=== PATIENT | female | born 1990 | race Caucasian/White ===

== ENCOUNTER 2018-07-26 02:28 | Emergency (ER) | payer OTHER ==
--- NOTE | 2018-07-26 02:35 | ERPHSYRPT ---
- History of Present Illness Time Seen by Provider: 07/26/18 02:30 Historian: patient Exam Limitations: no limitations Physician History: 28 y/o white female presents with sudden onset of substernal central cp with soa while driving home from work. pts pain radiates outward bilaterally. she has been fighting a chest cold. hurts worse to take a deep breath. pt has nkda and takes oral contraceptive pills only. pt has a cough but no hemoptysis. she has never had anything like this before. she has no h/o or family h/o blood clots. she has not been long distant traveling. Timing/Duration: today Activities at Onset: other (driving home) Quality: sharpness, stabbing Location: substernal, central Chest Pain Radiation: no radiation Severity of Pain-Max: mild Severity of Pain-Current: mild Modifying Factors: Improves With: coughing Associated Symptoms: shortness of breath, cough, hurts to breathe, No nausea, No vomiting, No palpitations Prior Chest Pain/Cardiac Workup: no prior chest pain Nitro Today/Relief: no nitro taken today Aspirin Treatment Today: no aspirin today Allergies/Adverse Reactions: No Known Drug Allergies Allergy (Unverified 07/26/18 02:43) Home Medications: Norgestimate-Ethinyl Estradiol [Sprintec 28 Day Tablet] 1 tab PO DAILY PRN 07/26 [History] - Review of Systems Constitutional: No Symptoms Eyes: No Symptoms Ears, Nose, & Throat: No Symptoms Respiratory: Cough, Dyspnea, No Stridor, No Wheezing Cardiac: Chest Pain, No Palpitations, No Syncope Abdominal/Gastrointestinal: No Symptoms, No Abdominal Pain, No Nausea, No Vomiting, No Diarrhea Genitourinary Symptoms: No Symptoms, No Dysuria, No Frequency, No Hematuria Musculoskeletal: No Symptoms, No Back Pain Skin: No Symptoms Neurological: No Symptoms Psychological: No Symptoms Endocrine: No Symptoms Hematologic/Lymphatic: No Symptoms Immunological/Allergic: No Symptoms All Other Systems: Reviewed and Negative - Past Medical History Pertinent Past Medical History: Yes Neurological History: No Pertinent History ENT History: No Pertinent History Cardiac History: No Pertinent History Respiratory History: No Pertinent History Endocrine Medical History: No Pertinent History Musculoskeletal History: No Pertinent History GI Medical History: No Pertinent History History: No Pertinent History Psycho-Social History: No Pertinent History Female Reproductive Disorders: No Pertinent History - Past Surgical History Neuro Surgical History: No Pertinent History Cardiac: No Pertinent History Respiratory: No Pertinent History Gastrointestinal: No Pertinent History Genitourinary: No Pertinent History Musculoskeletal: No Pertinent History Female Surgical History: No Pertinent History - Nursing Vital Signs Nursing Vital Signs: Initial Vital Signs Temperature 98.6 F 07/26/18 02:34 Pulse Rate 84 07/26/18 02:34 Respiratory Rate 18 07/26/18 02:34 Blood Pressure 145/86 07/26/18 02:34 O2 Sat by Pulse Oximetry 100 07/26/18 02:34 Pain Scale Pain Intensity 6 - Physical Exam General Appearance: mild distress, alert, anxiety Eye Exam: PERRL/EOMI, eyes nml inspection Ears, Nose, Throat Exam: normal ENT inspection, moist mucous membranes Neck Exam: normal inspection, non-tender, supple, full range of motion Respiratory Exam: normal breath sounds, chest tenderness, lungs clear, airway intact, No respiratory distress, No accessory muscle use, No rhonchi, No wheezing, No stridor Cardiovascular Exam: regular rate/rhythm, normal heart sounds, normal peripheral pulses Gastrointestinal/Abdomen Exam: soft, normal bowel sounds, No tenderness, No guarding, No rebound Pelvic Exam: not done Rectal Exam: not done Extremity Exam: normal inspection, normal range of motion, pelvis stable Neurologic Exam: alert, oriented x 3, cooperative, septic technician II-XII nml as tested Skin Exam: normal color, warm, dry Lymphatic Exam: No adenopathy SpO2 Interpretation: normal Oxygen Delivery: Room Air - Course Nursing assessment & vital signs reviewed: Yes EKG Interpreted by Me: RATE (86), NORMAL AXIS, NORMAL INTERVALS, NORMAL QRS, Other (no comparison) Ordered Tests: Active Orders 24 hr Category Date Time Status Telecommunications Operator STAT Care 07/26/18 02:38 Active EKG-ER Only STAT Care 07/26/18 02:37 Active IV Insertion STAT Care 07/26/18 02:37 Active CHEST 1 VIEW (PORTABLE) Stat Exams 07/26/18 02:38 Taken CBC W DIFF Stat Lab 07/26/18 02:45 Completed CMP Stat Lab 07/26/18 02:45 Completed D-DIMER QUANTITATION Stat Lab 07/26/18 02:45 Completed HCG,QUALITATIVE URINE Stat Lab 07/26/18 02:37 Uncollected NT PRO BNP Stat Lab 07/26/18 02:45 Completed PROTIME WITH INR Stat Lab 07/26/18 02:45 Completed TROPONIN Q3H Lab 07/26/18 02:45 Completed TROPONIN Q3H Lab 07/26/18 05:45 Ordered TROPONIN Q3H Lab 07/26/18 08:45 Ordered TROPONIN Q3H Lab 07/26/18 11:45 Ordered TROPONIN Q3H Lab 07/26/18 14:45 Ordered Medication Summary Generic Name Dose Route Start Last Admin Trade Name Freq PRN Reason Stop Dose Admin Hydrocodone Bitart/Acetaminophen 15 ml 07/26/18 03:54 Hydrocodone-Acetamin 2.5-108/5 Ml Solution PO 07/26/18 03:55 STAT STA Ceftriaxone Sodium/Dextrose 1 g in 50 mls @ 100 mls/hr 07/26/18 03:54 Rocephin 1 Gm-D5w 50 Ml Bag IV 07/26/18 04:23 STAT STA Methylprednisolone Sodium Succinate 125 mg 07/26/18 03:55 Solu-Medrol 125 Mg IV 07/26/18 03:56 STAT ONE Discontinued Medications Generic Name Dose Route Start Last Admin Trade Name Freq PRN Reason Stop Dose Admin Hydrocodone Bitart/Acetaminophen Confirm 07/26/18 03:49 Hydrocodone-Acetamin 2.5-108/5 Ml Solution Administered 07/26/18 03:50 Dose 15 ml .ROUTE .STK-MED ONE Aspirin 324 mg 07/26/18 02:37 07/26/18 02:46 Baby Aspirin 81 Mg Chew PO 07/26/18 02:38 324 mg STAT ONE Administration Aspirin Confirm 07/26/18 02:46 Baby Aspirin 81 Mg Chew Administered 07/26/18 02:47 Dose 324 mg .ROUTE .STK-MED ONE Ceftriaxone Sodium/Dextrose Confirm 07/26/18 03:49 Rocephin 1 Gm-D5w 50 Ml Bag Administered 07/26/18 03:50 Dose 1 g in 50 mls @ ud IV .STK-MED ONE Methylprednisolone Sodium Succinate Confirm 07/26/18 03:49 Solu-Medrol 125 Mg Administered 07/26/18 03:50 Dose 125 mg .ROUTE .STK-MED ONE Lab/Rad Data: Laboratory Result Diagrams 07/26/18 02:45 07/26/18 02:45 Laboratory Results 07/26/18 07/26/18 07/26/18 Range/Units 02:45 02:45 02:45 WBC (4.0-10.5) K/mm3 RBC (4.1-5.4) M/mm3 Hgb (12.0-16.0) gm/dl Hct (35-47) % MCV (78-100) fl MCH (26-32) pg MCHC (32-36) g/dl RDW (11.5-14.0) % Plt Count (150-450) K/mm3 MPV (6-9.5) fl Gran % (36.0-66.0) % Eos # (Auto) (0-0.5) Absolute Lymphs (auto) (1.0-4.6) Absolute Monos (auto) (0.0-1.3) Lymphocytes % (24.0-44.0) % Monocytes % (0.0-12.0) % Eosinophils % (0.00-5.0) % Basophils % (0.0-0.4) % Absolute Granulocytes (1.4-6.9) Basophils # (0-0.4) PT 12.8 H (9.95-12.35) SECONDS INR 1.10 (0.8-3.0) D-Dimer 446 (215-500) ng/mL Sodium 139 (137-145) mmol/L Potassium 3.5 (3.5-5.1) mmol/L Chloride 100 (98-107) mmol/L Carbon Dioxide 26 (22-30) mmol/L Anion Gap 16.8 H (5-15) MEQ/L BUN 13 (7-17) mg/dL Creatinine 0.60 (0.52-1.04) mg/dL Estimated GFR > 60.0 ML/MIN Glucose 96 (74-106) mg/dL Calcium 9.8 (8.4-10.2) mg/dL Total Bilirubin 0.80 (0.2-1.3) mg/dL AST 23 (14-36) U/L ALT 34 (0-35) U/L Alkaline Phosphatase 90 (38-126) U/L Troponin I < 0.012 (0.000-0.034) ng/mL NT-Pro-B Natriuret Pep 96.9 (0-450) pg/mL Serum Total Protein 8.3 H (6.3-8.2) g/dL Albumin 4.8 (3.5-5.0) g/dL 07/26/18 Range/Units 02:45 WBC 9.5 (4.0-10.5) K/mm3 RBC 4.67 (4.1-5.4) M/mm3 Hgb 14.1 (12.0-16.0) gm/dl Hct 41.8 (35-47) % MCV 89.5 (78-100) fl MCH 30.2 (26-32) pg MCHC 33.7 (32-36) g/dl RDW 13.4 (11.5-14.0) % Plt Count 308 (150-450) K/mm3 MPV 10.3 H (6-9.5) fl Gran % 60.4 (36.0-66.0) % Eos # (Auto) 0.07 (0-0.5) Absolute Lymphs (auto) 2.63 (1.0-4.6) Absolute Monos (auto) 1.03 (0.0-1.3) Lymphocytes % 27.8 (24.0-44.0) % Monocytes % 10.9 (0.0-12.0) % Eosinophils % 0.7 (0.00-5.0) % Basophils % 0.2 (0.0-0.4) % Absolute Granulocytes 5.70 (1.4-6.9) Basophils # 0.02 (0-0.4) PT (9.95-12.35) SECONDS INR (0.8-3.0) D-Dimer (215-500) ng/mL Sodium (137-145) mmol/L Potassium (3.5-5.1) mmol/L Chloride (98-107) mmol/L Carbon Dioxide (22-30) mmol/L Anion Gap (5-15) MEQ/L BUN (7-17) mg/dL Creatinine (0.52-1.04) mg/dL Estimated GFR ML/MIN Glucose (74-106) mg/dL Calcium (8.4-10.2) mg/dL Total Bilirubin (0.2-1.3) mg/dL AST (14-36) U/L ALT (0-35) U/L Alkaline Phosphatase (38-126) U/L Troponin I (0.000-0.034) ng/mL NT-Pro-B Natriuret Pep (0-450) pg/mL Serum Total Protein (6.3-8.2) g/dL Albumin (3.5-5.0) g/dL - Progress Progress: improved, re-examined Air Movement: good Progress Note: 07/26/18 03:56 cxr-no acute process Blood Culture(s) Obtained: No Antibiotics given: Yes Counseled pt/family regarding: lab results, diagnosis, need for follow-up, rad results - Departure Time of Disposition: 03:56 Departure Disposition: Home Clinical Impression: Bronchitis, Pleurisy Condition: Stable Critical Care Time: No Additional Instructions: drink plenty of fluids. follow up with primary doctor for further management Prescriptions: Albuterol 8 gm Mdi Hfa [Ventolin Hfa MDI] 8 gm IH Q4H #1 hfa.aer.ad Azithromycin 250 mg [Zithromax 250 MG TABLET] 250 mg PO ZPACK #6 tablet Hydrocodone Bit/Acetaminophen [Hydrocodone-Acetaminophen Soln] 10 ml PO Q6H # 120 ml Prednisone 10 mg [Deltasone 10 mg] 10 mg PO TID #12 tablet
[2018-07-26] MEDS ORDERED: BABY ASPIRIN 81 MG CHEW ONE (02:46)
[2018-07-26] MEDS: BABY ASPIRIN 81 MG CHEW PO ONE (02:46)
[2018-07-26 03:01] LABS: BASOPHIL % 0.2 % (0.0-0.4); Basophil (Absolute #) 0.02 (0-0.4); Eosinophil % 0.7 % (0.00-5.0); Eosinophil (Absolute #) 0.07 (0-0.5); Granulocytes % 60.4 % (36.0-66.0); Hematocrit 41.8 % (35-47); Hemoglobin 14.1 gm/dl (12.0-16.0); Lymphocyte (Absolute #) 2.63 (1.0-4.6); Lymphocytes % 27.8 % (24.0-44.0); Mean Cell Volume 89.5 fl (78-100); Mean Corpuscular Hemoglobin 30.2 pg (26-32); Mean Corpuscular Hgb Concent. 33.7 g/dl (32-36); Mean Platelet Volume 10.3 fl (6-9.5); Monocyte (Absolute #) 1.03 (0.0-1.3); Monocytes % 10.9 % (0.0-12.0); Platelet Count 308 K/mm3 (150-450); Red Blood Count 4.67 M/mm3 (4.1-5.4); Red Cell Distribution Width 13.4 % (11.5-14.0); White Blood Count 9.5 K/mm3 (4.0-10.5)
[2018-07-26 03:18] LABS: ALBUMIN 4.8 g/dL (3.5-5.0); ALKALINE PHOSPHATASE 90 U/L (38-126); ANION GAP 16.8 MEQ/L (5-15); BLOOD UREA NITROGEN 13 mg/dL (7-17); CHLORIDE 100 mmol/L (98-107); Calcium 9.8 mg/dL (8.4-10.2); Carbon Dioxide 26 mmol/L (22-30); Glucose 96 mg/dL (74-106); NT PRO BNP 96.9 pg/mL (0-450); Potassium 3.5 mmol/L (3.5-5.1); SGOT/AST 23 U/L (14-36); SGPT/ALT 34 U/L (0-35); SODIUM 139 mmol/L (137-145); Total Protein 8.3 g/dL (6.3-8.2)
[2018-07-26 03:29] LABS: INR 1.1 (0.8-3.0); PROTIME 12.8 SECONDS (9.95-12.35)
[2018-07-26] MEDS ORDERED: ROCEPHIN 1 Gm-D5w 50 ml Bag** 1 G/50 ML IVPB IV ONE (03:49)
[2018-07-26] MEDS ORDERED: solu-MEDROL 125 MG ONE (03:49)
[2018-07-26] MEDS ORDERED: HYDROCODONE-ACETAMIN 2.5-108/5 ML SOLUTION ONE (03:49)
[2018-07-26] MEDS: ROCEPHIN 1 Gm-D5w 50 ml Bag** 1 G/50 ML IVPB IV STA (03:57)
[2018-07-26] MEDS: HYDROCODONE-ACETAMIN 2.5-108/5 ML SOLUTION PO STA (03:57)
[2018-07-26] MEDS: solu-MEDROL 125 MG IV ONE (03:57)
[2018-07-26 04:15] VITALS: O2SAT 96
[2018-07-26 04:37] VITALS: BP 110/65; PULSE 83
--- NOTE | 2018-07-26 08:30 | XRAY ---
Indication: Chest pain. Short of breath. Comparison: None Portable chest demonstrates normal heart, lungs, and bony thorax with a few incidental tiny calcified granulomas.
== END 2018-07-26 04:40 | disposition home or self-care (01) ==
LOC: ED 02:28
DX: J40 Bronchitis, not specified as acute or chronic (principal); R09.1 Pleurisy
CPT/HCPCS: 36000; 36415; 71045; 80053; 83880; 84484; 85025; 85379; 85610; 93005; 93041; 96374; 99284; J0696; J2930; A9270-GY

== ENCOUNTER 2022-11-07 22:01 | Emergency (ER) | payer BC | END 2022-11-07 22:48 | disposition left against medical advice (07) | LOC: ED 22:01 | DX: Z53.21 Procedure and treatment not carried out due to patient leaving prior to being seen by health care provider (principal) ==